=== PATIENT | male | born 1970 | race Caucasian/White ===

== ENCOUNTER 2019-01-10 08:41 | Day surgery (SDC) | payer MEDICAID ==
[2019-01-03 09:34] LABS: BASOPHILS % (AUTO) 0.1 % (0-1); EOSINOPHILS # (AUTO) 0.6 X10'3 (0-0.9); EOSINOPHILS % (AUTO) 3.8 % (0-6); LYMPHOCYTES # (AUTO) 2.3 X10'3 (1.1-4.8); MEAN CORPUSCULAR HEMOGLOBIN 31.2 PG (27.0-31.0); MEAN CORPUSCULAR VOLUME 91.6 FL (78-98); MEAN PLATELET VOLUME 10.1 FL (7.4-10.4); MONOCYTES # (AUTO) 0.8 X10'3 (0-0.9); MONOCYTES % (AUTO) 5.2 % (2-12); NEUTROPHILS # (AUTO) 10.9 X10'3 (1.8-7.7); NEUTROPHILS % (AUTO) 74.9 % (42-75); PRE OP HEMATOCRIT 49.6 % (42.0-52.0); PRE OP HEMOGLOBIN 16.9 g/dL (14.0-17.9); PRE OP PLATELET COUNT 177 X10'3 (140-440); RED BLOOD COUNT 5.41 X10'6 (4.70-6.10); RED CELL DISTRIBUTION WIDTH 13.4 % (11.5-14.5)
[2019-01-03 10:01] LABS: ALBUMIN/GLOBULIN RATIO 1.1 (1.1-1.5); ALKALINE PHOSPHATASE 102 IU/L (46-116); BLOOD UREA NITROGEN 10 MG/DL (7-18); BUN/CREATININE RATIO 9.9 (5.4-32.0); CALCIUM 9.1 MG/DL (8.5-10.1); CHLORIDE 105 MMOL/L (99-107); CREATININE 1.01 MG/DL (0.60-1.10); PRE OP ALT 41 U/L (30-65); PRE OP ANION GAP 9 (8-16); PRE OP AST 17 U/L (10-37); PRE OP BILIRUB, TOTAL 0.4 MG/DL (0.0-1.0); PRE OP GLUCOSE 99 MG/DL (70-104); PRE OP POTASSIUM 3.7 MMOL/L (3.4-5.1); PRE OP SODIUM 141 MMOL/L (135-145); TOTAL CARBON DIOXIDE 27.5 MMOL/L (24-32); TOTAL PROTEIN 7.8 G/DL (6.4-8.2); eGFR 79 ML/MIN
[2019-01-10] VITALS (7 sets, daily range): BP systolic 112–136; BP diastolic 68–76
[~2019-01-10] VITALS: Ht 188 cm; Wt 129.6 kg
[~2019-01-10 08:41] MED LIST: ESCI10TA PO; ROSU20TA PO; TOP100T PO; VANCOMYCIN INJ 1000 MG in NORMAL SALINE 250ml IV.SOLN IV ONE; cefazolin/dext.iso 2gm/50ml 50 ML IV ONE; famotidine 20mg tablet PO ONE; ringers solution, lacted 1,000 ML IV SCH
[2019-01-10] MEDS ORDERED: BUPIVAcaine/PF 2.5mg/ml (0.25%) 10ml vial ONE (11:22)
[2019-01-10] MEDS ORDERED: triamcinolone acetonide 40mg/ml inj ONE (11:22)
[2019-01-10] MEDS ORDERED: sevoflurane 250ml liquid IH ONE (11:46)
[2019-01-10] MEDS ORDERED: fentaNYL /PF 50mcg/ml 5ml ampule ONE (11:48)
[2019-01-10] MEDS ORDERED: midazolam 2 mg/2 ml injection ONE (11:48)
[2019-01-10] MEDS ORDERED: propofol inj 20 ML IV ONE (11:58)
[2019-01-10] MEDS ORDERED: dexamethasone sod phosphate 4mg/ml inj. ONE (11:58)
[2019-01-10] MEDS ORDERED: LIDOcaine 2% (20mg/ml) 5ml vial ONE (11:58)
[2019-01-10] MEDS ORDERED: ondansetron/PF 4mg/2ml inj ONE (11:58)
[2019-01-10] MEDS ORDERED: ringers solution, lacted 1,000 ML IV SCH (12:21)
[2019-01-10] MEDS ORDERED: proCHLORperazine 10 MG/2 ml inj IV PRN (12:25)
[2019-01-10] MEDS ORDERED: ondansetron/PF 4mg/2ml inj IV PRN (12:25)
[2019-01-10] MEDS ORDERED: morphine 4 MG/ML inj SYRINge IV PRN ×2 (12:25)
[2019-01-10] MEDS ORDERED: meperidine/PF 25mg/ml syringe IV PRN ×3 (12:25)
[2019-01-10] MEDS ORDERED: ePHEDrine 50MG/ML INJ. ONE (12:37)
--- NOTE | 2019-01-10 12:53 | NUR ---
Received from OR via [facility] , accompanied by Anesthesiologist NINA and report given by Anesthesiolgist. PATIENT WITH VSS. MEDICATED UPON ARRIVAL BY ANESTHESIA. LEFT KNEE DRESSING IS CDI. + DORSALIS PEDIS PRESENT. PATIENT WITH 10L MASK ON WITH 100% SATURATIONS. 20G PIV IN RIGHT UE RUNNING LR AT 100. Addendum: 01/10/19 at 1310 by Tee Trivedi RN, RN Amended: Links added.
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
== END 2019-01-10 13:53 | disposition home or self-care (01) ==
LOC: PAS 08:41
PROVIDERS: ATTEND Orthopaedic Surgery
DX: S83.232A Complex tear of medial meniscus, current injury, left knee, initial encounter (principal); S83.282A Other tear of lateral meniscus, current injury, left knee, initial encounter; M22.2X2 Patellofemoral disorders, left knee; X58.XXXA Exposure to other specified factors, initial encounter; Y93.9 Activity, unspecified; Y92.9 Unspecified place or not applicable; Y99.9 Unspecified external cause status; M94.262 Chondromalacia, left knee; F41.9 Anxiety disorder, unspecified; F32.89 Other specified depressive episodes; K21.9 Gastro-esophageal reflux disease without esophagitis; E78.5 Hyperlipidemia, unspecified; E66.01 Morbid (severe) obesity due to excess calories; F17.210 Nicotine dependence, cigarettes, uncomplicated; Z79.899 Other long term (current) drug therapy; Z98.890 Other specified postprocedural states
CPT/HCPCS: 29873; 29880; 36415; 80053; 82948; 85025; 93005; A6449; J0690; J1100; J2001; J2250; J2405; J2704; J3010; J3301; J3370; J3490; J7120; A6250; A7000; J7030

== ENCOUNTER 2023-04-10 06:12 | Day surgery (SDC) | payer MEDICAID ==
[2023-04-05 15:42] LABS: BASOPHILS # (AUTO) 0.1 X10'3 (0-0.2); BASOPHILS % (AUTO) 0.6 % (0-1); EOSINOPHILS # (AUTO) 0.3 X10'3 (0-0.9); EOSINOPHILS % (AUTO) 2.1 % (0-6); LYMPHOCYTES % (AUTO) 22.1 % (21-51); MEAN CORPUSCULAR HEMOGLOBIN 30.5 PG (27.0-31.0); MEAN CORPUSCULAR HGB CONC 33.3 g/dL (33.0-36.5); MEAN CORPUSCULAR VOLUME 91.7 FL (78-98); MEAN PLATELET VOLUME 9.3 FL (7.4-10.4); MONOCYTES # (AUTO) 0.9 X10'3 (0-0.9); MONOCYTES % (AUTO) 6.4 % (2-12); NEUTROPHILS # (AUTO) 9.4 X10'3 (1.8-7.7); NEUTROPHILS % (AUTO) 68.8 % (42-75); PRE OP HEMATOCRIT 50.4 % (42.0-52.0); PRE OP HEMOGLOBIN 16.8 g/dL (14.0-17.9); PRE OP PLATELET COUNT 198 X10'3 (140-440); RED BLOOD COUNT 5.49 X10'6 (4.70-6.10); RED CELL DISTRIBUTION WIDTH 14.1 % (11.5-14.5)
[2023-04-05 15:49] LABS: PRE OP PROTIME 10.3 SECONDS (9.0-12.0)
[2023-04-05 15:54] LABS: ALBUMIN 4.2 G/DL (3.4-5.0); ALBUMIN/GLOBULIN RATIO 1.2 (1.1-1.5); ALKALINE PHOSPHATASE 97 IU/L (46-116); BLOOD UREA NITROGEN 10 MG/DL (7-18); BUN/CREATININE RATIO 10.1 (10.0-20.0); CALCIUM 9.5 MG/DL (8.5-10.1); CHLORIDE 104 MMOL/L (99-107); CREATININE 0.99 MG/DL (0.60-1.10); PRE OP ALT 42 U/L (30-65); PRE OP ANION GAP 9 (8-16); PRE OP AST 23 U/L (10-37); PRE OP BILIRUB, TOTAL 0.4 MG/DL (0.0-1.0); PRE OP GLUCOSE 88 MG/DL (70-104); PRE OP POTASSIUM 3.8 MMOL/L (3.4-5.1); PRE OP SODIUM 141 MMOL/L (135-145); TOTAL CARBON DIOXIDE 28.1 MMOL/L (24-32); TOTAL PROTEIN 7.7 G/DL (6.4-8.2); eGFR 79 ML/MIN
[~2023-04-10] VITALS: Ht 188 cm; Wt 137.9 kg
[2023-04-10] VITALS (11 sets, daily range): BP systolic 125–176; BP diastolic 80–98
[~2023-04-10 06:12] MED LIST changes: -ESCI10TA PO; -ROSU20TA PO; +ROSU20TA2 PO; -VANCOMYCIN INJ 1000 MG in NORMAL SALINE 250ml IV.SOLN IV ONE; +ceFOXitin 2GM-NS 100mL ADDvant 100 ML IV ONE; -cefazolin/dext.iso 2gm/50ml 50 ML IV ONE
[2023-04-10] MEDS ORDERED: BUPIVAcaine/PF 2.5 mg/ml (0.25%) 30ml vial ONE (06:43)
[2023-04-10] MEDS ORDERED: BUPIVAcaine/PF 2.5 mg/ml (0.25%) 30ml vial IJ ONE (08:05)
[2023-04-10] MEDS ORDERED: midazolam 1 mg/ML 2ml injection ONE (08:09)
[2023-04-10] MEDS ORDERED: rocuronium 10mg/ml inj IV ONE (08:10)
[2023-04-10] MEDS ORDERED: fentaNYL /PF 50mcg/ml 5ml ampule ONE (08:10)
[2023-04-10] MEDS ORDERED: propofol inj 20 ML IV ONE (08:10)
[2023-04-10] MEDS ORDERED: sevoflurane 250ml liquid IH ONE (08:18)
[2023-04-10] MEDS ORDERED: LIDOcaine 2% (20mg/ml) 5ml vial ONE (08:18)
[2023-04-10] MEDS ORDERED: morphine 2 MG/ML inj. syringe IV PRN (08:20)
[2023-04-10] MEDS ORDERED: proCHLORperazine 10 MG/2 ml inj IV PRN (08:20)
[2023-04-10] MEDS ORDERED: ondansetron/PF 4mg/2ml inj IV PRN (08:20)
[2023-04-10] MEDS ORDERED: ringers solution, lacted 1,000 ML IV SCH (08:20)
[2023-04-10] MEDS ORDERED: meperidine/PF 25mg/ml syringe IV PRN ×2 (08:20)
[2023-04-10] MEDS ORDERED: morphine 4 MG/ML inj SYRINge IV PRN (08:20)
[2023-04-10] MEDS ORDERED: dexamethasone sod phosphate 4mg/ml inj. ONE (08:31)
[2023-04-10] MEDS ORDERED: neostigmine methylsulfate 1 MG/ML 10ml vial ONE (10:34)
[2023-04-10] MEDS ORDERED: glycopyrrolate 0.2mg/ml inj ONE (10:34)
[2023-04-10] MEDS ORDERED: acetaminophen 1,000mg/100ml IV 100 ML IV ONE (10:35)
[2023-04-10] MEDS ORDERED: ondansetron/PF 4mg/2ml inj ONE (10:35)
--- NOTE | 2023-04-10 10:51 | NUR ---
Received from OR via , accompanied by Anesthesiologist CORBIN AND OR NURSE and report given by Anesthesiolgist. PT IS DROWSY YET RESPONDS TO VERBAL COMMANDS. DENIES PAIN OR DISCOMFORT. ONE LAP SITE TO LEFT UPPER ABDOMEN WITH BANDAID; CDI. 20G TO LT HAND WITH PACU LR RUNNING. VSS Addendum: 04/10/23 at 1106 by Bre Davis RN Amended: Links added.
[2023-04-10] MEDS: meperidine/PF 25mg/ml syringe IV PRN ×2 (11:18→11:37)
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
== END 2023-04-10 12:31 | disposition home or self-care (01) ==
LOC: PAS 06:12
PROVIDERS: ATTEND Surgery
DX: K43.2 Incisional hernia without obstruction or gangrene (principal); F17.210 Nicotine dependence, cigarettes, uncomplicated; E66.9 Obesity, unspecified; Z68.39 Body mass index [BMI] 39.0-39.9, adult; M19.90 Unspecified osteoarthritis, unspecified site; F32.A Depression, unspecified; Z98.890 Other specified postprocedural states; Z79.899 Other long term (current) drug therapy; Z79.01 Long term (current) use of anticoagulants
CPT/HCPCS: 36415; 49617; 80053; 82948; 85025; 85610; 85730; 93005; C1781; J0131; J0694; J1100; J2175; J2250; J2405; J2704; J2710; J3010; J3490; J7030; J7120; Z7506; Z7508; Z7512; A4215; A4618; C1758

== ENCOUNTER 2025-08-08 11:58 | Emergency (ER) | payer MEDICAID, SELFPAY ==
[~2025-08-08] VITALS: Ht 188 cm; Wt 130.2 kg
[~2025-08-08 11:58] MED LIST changes: +ARIP10TA87 PO; +CLON0.1T PO; +CLON0.5T4 PO; +DIVA500T9 PO; +OMEP40CA21 PO; +ROSU40TA89 PO; -TOP100T PO; +TRAZ-256 PO; +VENL150C58 PO; +VENL75CA61 PO; -ceFOXitin 2GM-NS 100mL ADDvant 100 ML IV ONE; -famotidine 20mg tablet PO ONE; -ringers solution, lacted 1,000 ML IV SCH
[2025-08-08 12:09] VITALS: TEMP 97.8
[2025-08-08] MEDS: LIDOcaine 1% W/epiNEPHrine 1:100,000 20ml vial IJ ONE (14:12)
[2025-08-08] MEDS ORDERED: CEPH-585 PO (14:57)
--- NOTE | 2025-08-08 14:57 | Physician Documentation ---
History of Present Illness ~ Chief Complaint: Laceration Stated Complaint: LEG LAC Time Seen by MD: 13:26 Source: patient Mode of Arrival: POV Exam Limitations: no limitations HPI 54-year-old male was cutting a large tree that was down in the middle of the road when he cut it because it for worked in a log rolled and cut the inner part of his left ankle Tetanus Within 5 Years: No Medication Reconciliation Allergies: Coded Allergies: No Known Allergies (Unverified , 08/08/25) Scheduled Aripiprazole (Aripiprazole), 1 TAB PO DAILY, (Reported) Cephalexin*Monohydrate* (Keflex*), 1 CAP PO Q12H Clonidine HCl (Clonidine HCl), 2 TAB PO TID, (Reported) Divalproex ER* (Depakote ER*), 2 TAB PO DAILY, (Reported) Omeprazole (Prilosec), 1 CAP PO DAILY, (Reported) Rosuvastatin Calcium (Rosuvastatin Calcium), 1 TAB PO DAILY, (Reported) Rosuvastatin Calcium* (Crestor*), 1 TAB PO DAILY, (Reported) Trazodone HCl (Trazodone HCl), 1.5 TAB PO DAILY, (Reported) Venlafaxine Hcl (Venlafaxine Hcl Er), 1 CAP PO DAILY, (Reported) Venlafaxine Hcl (Venlafaxine Hcl Er), 1 CAP PO DAILY, (Reported) Scheduled PRN Clonazepam (Clonazepam), 1 TAB PO PRN PRN for for anxiety/agitation, (Reported) Past Medical History Past Medical History: No Pertinent History Patient History: Patient reports no known family medical history. Review of Systems All Other Systems at this time: Reviewed and Negative Integumentary: Reports: see HPI Physical Exam Vital Signs: Temperature: 97.8, Source: Temporal, Heart Rate: 105, Respiratory Rate: 18, BP: 126/75, Pulse Oximetry: 98, Weight: 130.200 Oxygen Flow Rate: 0 General Appearance: alert, WD/WN, no apparent distress Skin 8 cm long superficial abrasion extending into a 3 cm partial-thickness lacera tion above the medial malleolus Procedures Laceration/Wound Repair Laceration : Location: Left inner ankle Length (cm): 3 Anesthesia: Lidocaine w/ Epi Volume Anesthetic (mls): 4 Prep: cholorprep, irrigated by nurse, irrigated by physician Irrigated w/ Saline (mls): 100 Debrided: moderate Undermining: none Margins: flaps aligned Foreign Body: completely, removed Repaired: skin Wound Repaired With: sutures Suture Size/Type: 4-0, prolene Number of Superficial Sutures: 5 Dressing Applied: simple, bacitracin Splint Applied?: No Sling Applied?: No Tolerated Procedure Well?: yes, no complications Progress Results/Orders Results/Orders Orders - PERLA ALONZO NP Laceration/I&D Tray Set Up (08/08/25 13:54) Completed Orders - PERLA ALONZO NP Lidocaine 1% W/Epi 1:100,000 (Xylocaine (08/08/25 13:55) Bacitracin Ointment (Bacitracin Ointment (08/08/25 14:55) Medications Received in ER Medications (Trade) Dose Ordered Sig/Jose Route PRN Reason Start Time Stop Time Status Last Admin Dose Admin (bacitracin ointment) 1 applic ONCE ONCE TP 08/08/25 14:55 08/08/25 14:56 DC 08/08/25 15:08 1 APPLIC Vital Signs 08/08/25 08/08/25 12:09 15:05 Temp 97.8 Pulse 105 91 Resp 18 16 B/P (MAP) 126/75 135/97 Pulse Ox 98 98 O2 Flow Rate 0 Medical Decision Making Findings Laceration had moderate amount of with debris scrubbed cleaned it irrigated laceration sutured Departure Time of Disposition: 14:55 Disposition: 01 HOME / SELF CARE / HOMELESS Impression: Primary Impression: Laceration Condition: Stable Discharge Instructions: Laceration Care, Adult, [id number] Additional Instructions: Sutures to be removed in 10 days. Leave dressing on for 24 hours may shower and get wet afterwards monitor for infection and take antibiotics for 3 days to prevent infection Referrals: NO PRIMARY CARE PROVIDER (PCP) Prescriptions Cephalexin*Monohydrate* (Keflex*) 500 Mg Capsule 1 CAP PO Q12H for 5 Days, #10 CAP Prov: PERLA ALONZO NP 08/08/25 Education Educated: Patient Educated regarding: diagnosis, treatment, need for follow up Signature Scribe Signature: No Scribe Attestation: The note accurately reflects work and decisions made by me.Perla Alonzo - ALLA 08/08/25 14:57 PERLA ALONZO NP Aug 08, 2025 14:57
[2025-08-08 15:05] VITALS: BP 135/97; PULSE 91; RESP 16; O2SAT 98
[2025-08-08] MEDS: bacitracin 15gm ointment TP ONE (15:08)
== END 2025-08-08 15:14 | disposition home or self-care (01) ==
LOC: ER 11:58
DX: S91.022A Laceration with foreign body, left ankle, initial encounter (principal); Z79.899 Other long term (current) drug therapy; W26.8XXA Contact with other sharp object(s), not elsewhere classified, initial encounter; Y93.89 Activity, other specified; Y92.89 Other specified places as the place of occurrence of the external cause; Y99.8 Other external cause status
CPT/HCPCS: 12032; 99283; 99284; A6449

== ENCOUNTER 2025-08-25 06:58 | Day surgery (SDC) | payer MEDICAID ==
[2025-08-22 15:34] LABS: MEAN PLATELET VOLUME 10.2 FL (7.4-10.4); PRE OP HEMATOCRIT 51.0 % (42.0-52.0); PRE OP HEMOGLOBIN 17.1 g/dL (14.0-17.9); PRE OP PLATELET COUNT 236 X10'3 (140-440); PRE OP WHITE BLOOD COUNT 13.3 10'3 (4.8-10.8); RED CELL DISTRIBUTION WIDTH 13.6 % (11.5-14.5)
[2025-08-22 15:56] LABS: CREATININE 1.14 MG/DL (0.60-1.10); PRE OP ALT 59 U/L (30-65); PRE OP ANION GAP 8 (8-16); PRE OP AST 26 U/L (10-37); PRE OP BILIRUB, TOTAL 0.5 MG/DL (0.0-1.0); PRE OP GLUCOSE 82 MG/DL (70-104); PRE OP POTASSIUM 3.9 MMOL/L (3.4-5.1); PRE OP SODIUM 145 MMOL/L (135-145); TOTAL CARBON DIOXIDE 31.0 MMOL/L (24-32); eGFR 67 ML/MIN
[~2025-08-25] VITALS: Ht 188 cm; Wt 127.1 kg
[2025-08-25] VITALS (7 sets, daily range): BP systolic 113–156; BP diastolic 75–92; PULSE 72–80; RESP 12–16; TEMP 98.2; O2SAT 95–98
[~2025-08-25 06:58] MED LIST changes: -ARIP10TA87 PO; -CLON0.1T PO; -CLON0.5T4 PO; -DIVA500T9 PO; -ROSU20TA2 PO; -ROSU40TA89 PO; -TRAZ-256 PO; -VENL150C58 PO; -VENL75CA61 PO; +[UNRECOGNIZED DRUG - CODE] SQ
--- NOTE | 2025-08-25 07:32 | ELECTROCARDIOGRAPH REPORT ---
[facility] Test Date: 2025-08-25 Test Time: 07:29:47 Pat Name: ALOK CHAN Department: [facility] Patient ID: [id number] Room: Gender: M Field Advisor: KIM : [id number] Requested By: JOE CORDON Order Number: [id number] Reading MD: Dr. KEON Powell Measurements Intervals [place] Rate: 78 P: -21 [place]: 138 QRS: 39 QRSD: 104 T: 19 QT: 350 QTc: 399 Interpretive Statements Sinus rhythm Electronically Signed On 08-25-2025 17:11:[address] KEON Powell Please click the below link to view image of tracing.
[2025-08-25] MEDS: Cefazolin 3 GM/100ML NS IVPB 100 ML IV ONE (07:40)
[2025-08-25] MEDS: ringers solution, lacted 1,000 ML IV SCH (07:40)
[2025-08-25] MEDS ORDERED: LIDOcaine 2% (20mg/ml) 5ml vial ONE ×2 (08:00)
[2025-08-25] MEDS ORDERED: BUPIVAcaine/PF 2.5mg/ml (0.25%) 10ml vial ONE (08:00)
[2025-08-25] MEDS ORDERED: fentaNYL/PF 50MCG/1 ML 2ML syringe ONE (08:24)
[2025-08-25] MEDS ORDERED: midazolam 1 mg/ML 2ml injection ONE (08:24)
[2025-08-25] MEDS ORDERED: acetaminophen 1,000mg/100ml IV 100 ML IV PRN (08:35)
[2025-08-25] MEDS ORDERED: HYDROmorphone/PF 0.2 MG/ML SYRINGE IV PRN ×2 (08:35)
[2025-08-25] MEDS ORDERED: labetalol 20mg/4ml (5mg/ml) syringe IV PRN (08:35)
[2025-08-25] MEDS ORDERED: hydrALAZINE 20mg/ml inj. IV PRN (08:35)
[2025-08-25] MEDS ORDERED: ondansetron/PF 4mg/2ml inj IV PRN (08:35)
[2025-08-25] MEDS ORDERED: morphine 4 MG/ML inj SYRINge IV PRN (08:35)
[2025-08-25] MEDS ORDERED: ringers solution, lacted 1,000 ML IV SCH (08:35)
[2025-08-25] MEDS: LIDOcaine 2% (20 mg/ml) 5ml cardiac syringe IJ ONE (08:40)
[2025-08-25] MEDS: BUPIVAcaine/PF 2.5mg/ml (0.25%) 10ml vial IJ ONE (08:40)
[2025-08-25] MEDS ORDERED: propofol inj 20 ML IV ONE ×2 (08:43)
--- NOTE | 2025-08-25 13:11 | OPERATIVE REPORT ---
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 It has gone on to be unstable and ineff ective in his ability to pinch. Surgery is indicated to stabilize the joint and improve function. Risks and benefits were discussed with the patient and he agreed to proceed. Once in the operating room the arm was prepped and draped in usual manner a tourniquet was used at the base of the finger and local anesthetic was infiltrated at the digital nerve level at the base of the digit. Previous scar was outlined and incised and extended over the DIPJ joint dorsally. There was scar tissue and no obvious extensor tendon. The capsule and collateral ligaments of the joint were excised and it was hyperflexed. A sagittal saw was used to make flat cuts on either side of the bone for the arthrodesis. A K-wire was advanced through the base of the distal phalanx out through the tip and then under fluoro guidance was retrograded back into the shaft of the middle phalanx. Measurements were obtained and over drilling was done followed by placement of the cannulated screw over the guide pin. Once fluoro showed the arthrodesis was well compressed and the screw was in good position of the guide pin was removed. The incision was irrigated and closed in layers and the tourniquet was removed. A sterile dressing was then applied along with a aluminum splint. The patient was taken to the recovery room in stable condition JAIRON CARRANZA Jr., MD Aug 25, 2025 13:11
== END 2025-08-25 10:09 | disposition home or self-care (01) ==
LOC: PAS 06:58
PROVIDERS: ATTEND Orthopaedic Surgery Hand Surgery
DX: M19.142 Post-traumatic osteoarthritis, left hand (principal); G89.18 Other acute postprocedural pain; E78.5 Hyperlipidemia, unspecified; E66.9 Obesity, unspecified; G47.33 Obstructive sleep apnea (adult) (pediatric); F41.9 Anxiety disorder, unspecified; F32.A Depression, unspecified; M19.90 Unspecified osteoarthritis, unspecified site; Z87.891 Personal history of nicotine dependence; Z79.899 Other long term (current) drug therapy; Z68.36 Body mass index [BMI] 36.0-36.9, adult
CPT/HCPCS: 26860; 36415; 64415; 80053; 82948; 85025; 93005; C1713; J0690; J2003; J2250; J2704; J3010; J3490; J7030; J7120; Z7506; Z7512; A4215; A4618; A7000; C1769